=== PATIENT | male | born 1990 | race Two or more races ===

== ENCOUNTER 2021-01-09 06:42 | Emergency (ER) | payer MEDICAID, OTHER ==
[~2021-01-09] VITALS: Ht 180.3 cm; Wt 97.5 kg
[2021-01-09 06:55] VITALS: BP 116/71
[2021-01-09] MEDS ORDERED: SODIUM CHLORIDE 0.9% 1,000 ML IV ONE ×2 (07:30)
[2021-01-09] MEDS ORDERED: KETOROLAC TROMETH 30 MG/ML 1ML VIAL IV ONE (07:30)
[2021-01-09 08:22] LABS: Basophils # (auto) 0 10 ^3/uL (0-0.2); Basophils % (auto) 0.2 % (0.0-2.0); Eosinophils # (auto) 0 10 ^3/uL (0-0.8); Eosinophils % (auto) 0.3 % (0.0-7.0); Hematocrit 43.9 % (41.0-53.0); Hemoglobin 14.7 g/dL (13.5-17.5); Lymphocytes # (auto) 2.2 10 ^3/uL (0.4-5.4); Lymphocytes % (auto) 19.7 % (10.0-50.0); Mean Corpuscular Hemoglobin 30.9 pg (28.0-32.0); Mean Corpuscular Hgb Conc. 33.5 g/dL (32.0-36.0); Monocytes # (auto) 0.8 10 ^3/uL (0-1.3); Monocytes % (auto) 7.1 % (0.0-12.0); Neutrophils # (auto) 8.3 10 ^3/uL (1.6-8.6); Neutrophils % (auto) 72.7 % (37.0-80.0); Red Blood Cells 4.78 10^6/uL (4.5-5.90); Red Cell Distribution Width 13.2 % (11.8-14.3); White Blood Cell 11.4 10^3/uL (4.4-10.8)
[2021-01-09 08:40] LABS: Albumin 4.1 g/dL (3.4-5.0); Calcium 9.4 mg/dL (8.5-10.1)
[2021-01-09 08:43] LABS: BUN/Creatinine Ratio 13.1; Bilirubin, Total 0.6 mg/dL (0.2-1.0); Total Protein 8.2 g/dL (6.4-8.2)
[2021-01-09 10:31] LABS: Urine Bacteria NONE SEEN /hpf (None Seen); Urine Blood 3+ /uL (Negative); Urine Budding Yeast OCCASIONAL /hpf (None Seen); Urine Mucus FEW (None Seen); Urine Specific Gravity 1.021 (1.001-1.035); Urine WBC 53 /hpf (0 - 3)
== END 2021-01-09 11:44 | disposition home or self-care (01) ==
LOC: ER 06:42 → EDBD 06:42 → ER 11:44
DX: N20.0 Calculus of kidney (principal); R11.0 Nausea
CPT/HCPCS: 36415; 74176; 80053; 81001; 83690; 85025; 96361; 96374; 99284; J1885; J7030